=== PATIENT | male | born 1980 | race Caucasian/White ===

== ENCOUNTER 2020-02-25 14:34 | Emergency (ER) | payer OTHER ==
[~2020-02-25] VITALS: Ht 182.9 cm; Wt 88.6 kg
[~2020-02-25 14:34] MED LIST: DOXYCYCLINE 10100 MG PO; RIFAMPIN PO; ZOVIRAX400 MG PO; [UNRECOGNIZED DRUG - OTHER] IM; [UNRECOGNIZED DRUG - OTHER] PO; [UNRECOGNIZED DRUG - OTHER] PO
[2020-02-25 14:38] VITALS: TEMP 97.4
[2020-02-25 16:00] VITALS: BP 115/72; PULSE 61
== END 2020-02-25 16:00 | disposition home or self-care (01) ==
LOC: COL.ER 14:34
DX: S61.213A Laceration without foreign body of left middle finger without damage to nail, initial encounter (principal); W23.0XXA Caught, crushed, jammed, or pinched between moving objects, initial encounter; Y92.009 Unspecified place in unspecified non-institutional (private) residence as the place of occurrence of the external cause